=== PATIENT | female | born 1945 | race Hispanic/Latino ===

== ENCOUNTER → 2018-02-03 | Outpatient (CLI) | payer MEDICARE ==
[~2018-02-03] MED LIST: AMLO10TA6 PO; ASPI-1026 PO; ATOR10 PO; CALC-724 PO; CETI10TA57 PO; CLOP75TA14 PO; ESZO3 PO; FISH1CAP63 PO; GABA-531 PO; ISOS20TA7 PO; LAMO25TA8 PO; LIOT5TAB8 PO; POTA10TA11 PO; QUET25TA74 PO; RANI150C4 PO; RANO10003 PO; TELM1TAB6 PO; TIZA4TAB4 PO; TRAZ150T79 PO; trintellix PO
== END | disposition home or self-care (01) ==
LOC: SHCH 14:08
PROVIDERS: ATTEND Internal Medicine Cardiovascular Disease
DX: I12.9 Hypertensive chronic kidney disease with stage 1 through stage 4 chronic kidney disease, or unspecified chronic kidney disease (principal); E11.22 Type 2 diabetes mellitus with diabetic chronic kidney disease; N18.9 Chronic kidney disease, unspecified; E78.5 Hyperlipidemia, unspecified; E03.9 Hypothyroidism, unspecified; I25.10 Atherosclerotic heart disease of native coronary artery without angina pectoris; Z90.710 Acquired absence of both cervix and uterus
CPT/HCPCS: 93306

== ENCOUNTER → 2018-02-23 | Outpatient (CLI) | payer MEDICARE | END | disposition home or self-care (01) | LOC: SHCH 09:10 | PROVIDERS: ATTEND Internal Medicine Cardiovascular Disease | DX: I25.10 Atherosclerotic heart disease of native coronary artery without angina pectoris (principal); E11.9 Type 2 diabetes mellitus without complications; I10 Essential (primary) hypertension; E78.5 Hyperlipidemia, unspecified; E03.9 Hypothyroidism, unspecified | CPT/HCPCS: 93880 ==

== ENCOUNTER → 2019-03-23 | Outpatient (CLI) | payer MEDICARE ==
[~2019-03-23] MED LIST changes: +AEC81 PO; -AMLO10TA6 PO; +AMLO10TA7 PO; -ASPI-1026 PO; -ATOR10 PO; -CALC-724 PO; -CETI10TA57 PO; -ESZO3 PO; -FISH1CAP63 PO; -GABA-531 PO; +LAMO25TA3 PO; -LAMO25TA8 PO; +LAMO25TA9 PO; +LEVO75TA10 PO; -LIOT5TAB8 PO; -POTA10TA11 PO; -QUET25TA74 PO; -RANI150C4 PO; -RANO10003 PO; -TELM1TAB6 PO; +THIA100T91 PO; -TIZA4TAB4 PO; -TRAZ150T79 PO; -trintellix PO
== END | disposition home or self-care (01) ==
LOC: LAB 16:05
PROVIDERS: ATTEND Internal Medicine Gastroenterology
DX: R19.4 Change in bowel habit (principal)
CPT/HCPCS: 87507

== ENCOUNTER → 2021-03-13 | Outpatient (CLI) | payer MEDICARE ==
[~2021-03-13] MED LIST changes: +AMLO-258 PO; -AMLO10TA7 PO; -ISOS20TA7 PO; +ISOS20TA85 PO
== END | disposition home or self-care (01) ==
LOC: SHCH 13:46
PROVIDERS: ATTEND Internal Medicine Cardiovascular Disease
DX: I70.293 Other atherosclerosis of native arteries of extremities, bilateral legs (principal); I65.23 Occlusion and stenosis of bilateral carotid arteries; I25.10 Atherosclerotic heart disease of native coronary artery without angina pectoris; R09.89 Other specified symptoms and signs involving the circulatory and respiratory systems; Z95.1 Presence of aortocoronary bypass graft; Z95.5 Presence of coronary angioplasty implant and graft
CPT/HCPCS: 93925

== ENCOUNTER → 2022-09-24 | Outpatient (CLI) | payer MEDICARE ==
[~2022-09-24] MED LIST changes: +CLOP-31 PO; -CLOP75TA14 PO
== END | disposition home or self-care (01) ==
LOC: SHCH 12:40
PROVIDERS: ATTEND Internal Medicine Cardiovascular Disease
DX: I87.2 Venous insufficiency (chronic) (peripheral) (principal); I65.23 Occlusion and stenosis of bilateral carotid arteries
CPT/HCPCS: 93880; 93970

== ENCOUNTER → 2023-12-26 | Outpatient (CLI) | payer MEDICARE | END | disposition home or self-care (01) | LOC: SHCH 09:41 | PROVIDERS: ATTEND Internal Medicine Cardiovascular Disease | DX: I65.23 Occlusion and stenosis of bilateral carotid arteries (principal); I08.8 Other rheumatic multiple valve diseases; E11.9 Type 2 diabetes mellitus without complications; E78.5 Hyperlipidemia, unspecified; I10 Essential (primary) hypertension | CPT/HCPCS: 93306; 93880 ==